=== PATIENT | female | born 1990 | race Caucasian/White ===

== ENCOUNTER → 2017-01-17 | Emergency (ER) | payer OTHER ==
[~2017-01-17] MED LIST: BCPILLS PO; BUPR8SUB19 SL; IBUP-1050 PO; LEVO75TA5 PO; ONDA4TAB46 PO
== END ==
LOC: C.EDB 18:52
DX: Z00.8 Encounter for other general examination (principal)

== ENCOUNTER → 2017-01-17 | Outpatient (CLI) | payer OTHER | END | disposition home or self-care (01) | LOC: C.LAB 19:04 | DX: Z02.83 Encounter for blood-alcohol and blood-drug test (principal) ==

== ENCOUNTER 2017-11-23 15:51 | Inpatient (IN) | payer OTHER ==
[~2017-11-23] VITALS: Ht 158.8 cm; Wt 81.8 kg
[2017-11-23] MEDS ORDERED: LACTATED RINGER'S 1000ML 1,000 ML IV PRN (19:14)
[2017-11-23] MEDS ORDERED: BUPIVACAINE 0.25% 30 ML VIAL ONE (19:52)
[2017-11-23] MEDS ORDERED: EpHEDrine SULFATE INJ 50 MG/ML AMP ONE (19:53)
[2017-11-23] MEDS ORDERED: FENTANYL CITRATE INJ 50 MCG/1 ML 2 ML VIAL ONE (19:53)
[2017-11-23] MEDS ORDERED: FENTANYL 2MCG/ML ROPIV 1.25MG/ML 100ML BAG ONE (19:53)
[2017-11-23 21:08] LABS: HEMOGLOBIN 13.2 g/dL (12.0-16.0); MEAN CELL VOLUME 85.6 fL (80-100); MEAN CORPUSCULAR HEMOGLOBIN 29.7 pg (25-34); MEAN CORPUSCULAR HGB CONC 34.7 g/dl (32-36); MEAN PLATELET VOLUME 13.2 fL (7.4-10.4); PLATELET COUNT 158 K/uL (130-400); RED CELL DISTRIBUTION WIDTH CV 13.9 % (11.5-14.5); RED CELL DISTRIBUTION WIDTH SD 43.2 fL (36.4-46.3); WHITE BLOOD COUNT 17.55 K/uL (4.8-10.8)
[2017-11-23] MEDS: LACTATED RINGER'S 1000ML 1,000 ML IV SCH (21:24)
[2017-11-23 22:35] VITALS: Ht 158.8 cm; Wt 81.8 kg
[2017-11-24] MEDS: LACTATED RINGER'S 1000ML 1,000 ML IV SCH ×2 (00:44→08:25)
[2017-11-24] MEDS ORDERED: FENTANYL 2MCG/ML ROPIV 1.25MG/ML 100ML BAG ONE (05:07)
[2017-11-24] MEDS ORDERED: LACTATED RINGER'S 1000ML 500 ML IV PRN ×2 (05:21→07:36)
[2017-11-24] MEDS ORDERED: DiphenhydrAMINE HCL 50 MG/ML VIAL IV PRN (05:30)
[2017-11-24] MEDS ORDERED: ONDANSETRON INJ 2 MG/ML 2 ML VIAL IV PRN (05:30)
[2017-11-24] MEDS ORDERED: FENTANYL 2MCG/ML ROPIV 1.25MG/ML 100ML BAG EPI PRN (05:30)
[2017-11-24] MEDS ORDERED: EpHEDrine SULFATE INJ 50 MG/ML AMP IV PRN (05:30)
[2017-11-24] MEDS ORDERED: OXYTOCIN 30 UNITS/500ML NSS IV PRN ×2 (07:45→12:15)
[2017-11-24] MEDS: BUPRENORPHINE HCL 8 MG SUBL SL SCH (08:01)
[2017-11-24] MEDS: LEVOTHYROXINE 75 MCG TAB PO SCH (08:01)
[2017-11-24] MEDS ORDERED: ONDA-170 PO (08:16)
[2017-11-24] MEDS ORDERED: LANOLIN OINT EXT PRN (12:15)
[2017-11-24] MEDS ORDERED: DIPHTHERIA/TETANUS/PERTUSSIS 0.5 ML SYR/VIAL IM. ONE (12:15)
[2017-11-24] MEDS ORDERED: ACETAMINOPHEN 325 MG TAB PO PRN (12:15)
[2017-11-24] MEDS ORDERED: SUPERCREAM 0.870 % 15GM JAR EXT PRN (12:15)
[2017-11-24] MEDS ORDERED: BENZOCAINE 20% AER SPR 82.5 GM CAN EXT PRN (12:15)
[2017-11-24] MEDS ORDERED: HYDROCORTISONE ACETATE 25 MG SUPP PR PRN (12:15)
[2017-11-24] MEDS: IBUPROFEN 600 MG TAB PO PRN ×2 (13:03→19:52)
--- NOTE | 2017-11-24 13:31 | Anesthesia Procedure Note ---
Anesthesia Epidural Removal Nt Date & Time Nov 24, 2017 at 13:31 Vital Signs Pain Intensity: 3.0 Notes Mental Status: alert / awake / arousable, participated in evaluation Nausea / Vomiting: adequately controlled Pain: adequately controlled Airway Patency, RR, SpO2: stable & adequate BP & HR: stable & adequate Hydration State: stable & adequate Neuraxial Anesthesia: was administered, sensory block is resolving Anesthetic Complications: no major complications apparent, pt satisfied with anesthetic care Epidural: removed without complications, with tip intact
--- NOTE | 2017-11-24 14:16 | DELIVERY SUMMARY ---
DATE OF OPERATION: 11/24/2017 Agnieszka Garza was admitted in labor. She is on Subutex 24 mg a day for drug dependence. She is also on levothyroxine 75 mcg a day. She labored throughout the night. When I came on in the morning she was about 7+ cm. Her contractions were sporadic. Started her on IV oxytocin. She had an epidural in place for pain control. She went to full dilatation and delivered a live male via direct occiput anterior position over an intact perineum. The was suctioned through the mouth and the nose. Cord was clamped, cut by the father. Cord blood was taken. With IV Pitocin running, the placenta was removed intact. Inspection revealed a tear of the right labia minora that extended from the hymenal ring. The perineum was intact. We infiltrated the area with local. I then did a deep suture of 2-0 Vicryl to approximate the edges of the labia minora. Then I did a mattress suture to approximate it on either side of the midline approximation. With about 6-7 mattress sutures, I approximated the tissues anatomically. Hemostasis was good. I inspected the perineum, was intact, checked for any vaginal hematomas. There were none. ESTIMATED BLOOD LOSS: 200 mL. Apgars were deferred to the nurses. I attest to the content of the Intraoperative Record and any orders documented therein. Any exception s are noted below.
[2017-11-24 15:15] VITALS: BP 123/68; PULSE 83; TEMP 36.7
[2017-11-24] MEDS: DOCUSATE SODIUM 100 MG CAP PO SCH (19:33)
[2017-11-24 19:35] VITALS: BP 111/64; PULSE 84; TEMP 36.7; O2SAT 99
[2017-11-25 00:30] VITALS: BP 113/61; PULSE 64; TEMP 36.9; O2SAT 99
[2017-11-25] MEDS: IBUPROFEN 600 MG TAB PO PRN ×3 (03:47→19:39)
[2017-11-25 07:30] VITALS: BP 108/54; PULSE 60; TEMP 36.9; O2SAT 98
[2017-11-25] MEDS ORDERED: LEVOTHYROXINE 75 MCG TAB PO SCH (07:30)
[2017-11-25] MEDS: LEVOTHYROXINE 75 MCG TAB PO SCH (07:59)
[2017-11-25] MEDS ORDERED: BUPRENORPHINE HCL 8 MG SUBL SL SCH (08:00)
[2017-11-25 08:04] LABS: HEMATOCRIT 34.9 % (37-47); HEMOGLOBIN 11.9 g/dL (12.0-16.0)
--- NOTE | 2017-11-25 08:41 | Progress Note ---
Subjective Nov 25, 2017. Subjective conversation w/ patient Ambulation: ambulating normally Voiding: no voiding problems Passing Gas: Yes Diet Tolerance: Regular Diet Lochia: Small Feeding Type: Breast Feeding Review of Systems Constitutional: + fever Objective Vital Signs Date Time Temp Pulse Resp B/P (MAP) Pulse Ox O2 Delivery O2 Flow Rate FiO2 11/25/17 07:30 98 Room Air 11/25/17 07:30 36.9 60 18 108/54 (72) 98 Room Air 11/25/17 00:30 36.9 64 20 113/61 (78) 99 Room Air 11/25/17 00:30 99 Room Air 11/24/17 19:35 36.7 84 20 111/64 (80) 99 Room Air 11/24/17 19:35 99 Room Air 11/24/17 15:15 36.7 83 20 123/68 (86) Physical Exam General Appearance: WELL-APPEARING Abdomen: non tender Fundus: Firm, Non-Tender Extremities: no pedal edema, no calf tenderness Laboratory Results Last 24 Hours Test 11/25/17 07:47 Hemoglobin 11.9 g/dL Hematocrit 34.9 % Assessment and Plan Post- Day#: 1
[2017-11-25] MEDS: ONDANSETRON 8 MG TAB PO SCH (08:59)
[2017-11-25] MEDS: PRENATAL VITAMIN TAB PO SCH (09:00)
[2017-11-25] MEDS: DOCUSATE SODIUM 100 MG CAP PO SCH ×2 (09:00→19:38)
[2017-11-25] MEDS: FERROUS SULFATE 325 MG TAB PO SCH (09:00)
[2017-11-25] MEDS: BUPRENORPHINE HCL 8 MG SUBL SL SCH (09:03)
[2017-11-25 13:00] VITALS: BP 106/51; PULSE 68; TEMP 37; O2SAT 97
[2017-11-25 15:50] VITALS: BP 118/72; PULSE 60; TEMP 36.8; O2SAT 97
[2017-11-25 19:25] VITALS: BP 130/74; PULSE 85; TEMP 36.8
[2017-11-25] MEDS ORDERED: BISACODYL 5 MG TABEC PO SCH (20:00)
[2017-11-26 03:25] VITALS: BP 129/73; PULSE 61; TEMP 36.8
[2017-11-26] MEDS ORDERED: BISACODYL 10 MG SUPP PR PRN (07:00)
[2017-11-26 07:20] VITALS: BP 126/70; PULSE 65; TEMP 36.8; O2SAT 97
[2017-11-26] MEDS: ONDANSETRON 8 MG TAB PO SCH (07:33)
[2017-11-26] MEDS: LEVOTHYROXINE 75 MCG TAB PO SCH (07:33)
[2017-11-26] MEDS: DOCUSATE SODIUM 100 MG CAP PO SCH (07:33)
[2017-11-26] MEDS: PRENATAL VITAMIN TAB PO SCH (07:33)
[2017-11-26] MEDS: IBUPROFEN 600 MG TAB PO PRN (07:34)
[2017-11-26] MEDS: FERROUS SULFATE 325 MG TAB PO SCH (07:36)
[2017-11-26 07:57] LABS: BASO % 0.5 %; BASO ABS # 0.06 K/uL (0-0.2); EOS % 2.9 %; EOS ABS # 0.35 K/uL (0-0.5); HEMATOCRIT 36.1 % (37-47); HEMOGLOBIN 12.3 g/dL (12.0-16.0); IG# 0.05 K/uL (0.00-0.02); LYMPH % 25.3 %; LYMPH ABS # 3.03 K/uL (1.2-3.4); MEAN CELL VOLUME 87.8 fL (80-100); MEAN CORPUSCULAR HEMOGLOBIN 29.9 pg (25-34); MEAN CORPUSCULAR HGB CONC 34.1 g/dl (32-36); MEAN PLATELET VOLUME 12.3 fL (7.4-10.4); MONO % 8.8 %; MONO ABS # 1.05 K/uL (0.11-0.59); NEUT % 62.1 %; NEUT ABS # 7.45 K/uL (1.4-6.5); PLATELET COUNT 162 K/uL (130-400); RED CELL DISTRIBUTION WIDTH CV 14.2 % (11.5-14.5); RED CELL DISTRIBUTION WIDTH SD 45.6 fL (36.4-46.3); WHITE BLOOD COUNT 11.99 K/uL (4.8-10.8)
[2017-11-26] MEDS: BUPRENORPHINE HCL 8 MG SUBL SL SCH (08:21)
--- NOTE | 2017-11-26 08:23 | OB/GYN Progress Note ---
PRIOR AUTHORIZATION TECHNICIAN Progress Note Date of Service: Nov 26, 2017. Patient is seen and examined. She feels well, no complaints. Ambulating without dizziness Voiding without difficulty Tolerating regular diet with out N&V Bleeding is minimal No fever/ chills/ CP/ SOB/ N&V/ Leg pain Breast feeding without problems Discussed contraception with patient in details. Abstinence for 6 weeks, BCP, progestin only pills, Nexplanon, IUD's, Mirena and Paragard.She likes Rx for POP. Date Time Temp Pulse Resp B/P (MAP) Pulse Ox O2 Delivery O2 Flow Rate FiO2 11/26/17 03:25 36.8 61 18 129/73 (91) 11/25/17 19:25 Room Air 11/25/17 19:25 36.8 85 18 130/74 (92) 11/25/17 15:50 36.8 60 18 118/72 (87) 97 Room Air 11/25/17 13:00 37.0 68 18 106/51 (69) 97 Room Air Last 24 Hours Test 11/26/17 07:47 White Blood Count 11.99 K/uL Red Blood Count 4.11 M/uL Hemoglobin 12.3 g/dL Hematocrit 36.1 % Mean Corpuscular Volume 87.8 fL Mean Corpuscular Hemoglobin 29.9 pg Mean Corpuscular Hemoglobin Concent 34.1 g/dl Platelet Count 162 K/uL Mean Platelet Volume 12.3 fL Neutrophils (%) (Auto) 62.1 % Lymphocytes (%) (Auto) 25.3 % Monocytes (%) (Auto) 8.8 % Eosinophils (%) (Auto) 2.9 % Basophils (%) (Auto) 0.5 % Neutrophils # (Auto) 7.45 K/uL Lymphocytes # (Auto) 3.03 K/uL Monocytes # (Auto) 1.05 K/uL Eosinophils # (Auto) 0.35 K/uL Basophils # (Auto) 0.06 K/uL RDW Standard Deviation 45.6 fL RDW Coefficient of Variation 14.2 % Immature Granulocyte % (Auto) 0.4 % Immature Granulocyte # (Auto) 0.05 K/uL PE: General: Alert, orientedx3, NAD Abd: soft, NT, fundus firm, below Umbilicus Perineum intact, Lochia rubra minimal Ext; NT, no edema AP: 27 yo s/p , ppd# 2 VSS Afebrile doing well Continue routine care All questions were answered Instructions were given when to call D/C home , f/u in office
[2017-11-26] MEDS ORDERED: PRENTAB26 PO (08:24)
[2017-11-26] MEDS ORDERED: NORE0.3527 PO (08:24)
[2017-11-26] MEDS ORDERED: LEVO75TA5 PO (08:24)
[2017-11-26] MEDS ORDERED: MTR600X PO (08:24)
--- NOTE | 2017-11-26 08:25 | Discharge Instructions ---
Discharge Instructions Date of Service Nov 26, 2017. Admission Reason for Admission: Check Labor Discharge Discharge Diagnosis / Problem: Discharge Goals Goal(s): Routine recovery after delivery Medications Continue Dispensed Medications: lansinoh Activity Recommendations Activity Limitations: as noted below ACTIVITY RECOMMENDATIONS: * Gradual return to full activity over the next 2-3 weeks. * No lifting - nothing heavier than baby over the next 2-3 weeks. * Do not engage in vigorous exercise, sexual activity or sports until cleared by your physician. * Do not drive or operate any motorized equipment until cleared by your physician. * You may shower/bathe daily. BREAST CARE: If you are not breast feeding: * Wear a supportive bra 24 hours a day for one to two weeks. * Avoid stimulating your breasts and nipples as much as possible during the first few weeks after delivery. * When taking a shower, have the warm water hit your back, not breasts. * When your breasts feel full, apply ice packs. Usually three to four times a day helps ease the discomfort. * Take a mild pain medication (Tylenol/Motrin) when you are uncomfortable. If breast feeding: * Use breast milk to lubricate nipples. Lansinoh cream may be used for sore nipples. You do not need to remove cream prior to breast feeding. If using a different brand of cream, check the label for directions regarding removal of cream prior to nursing. * Wear a supportive bra. * If having problems with breasts or breast feeding, call a apprenticeship consultant or your health care provider. EPISIOTOMY CARE: After delivery, if you have an episiotomy (stitches), the following steps will ease discomfort and aid healing. * For the first 24 hours after delivery, place ice packs next to your episiotomy to help reduce swelling. * After the first 24 hour-period, sitz baths, either portable or in the tub, are suggested. A shower with a shower arm sprayed over the episiotomy may be comforting. * Leonarda care should be done after each voiding and bowel movement. Squirt warm water from a plastic bottle over the perineum (region of the body between the anus and urinary opening) and pat dry. * Use Dermoplast to ease discomfort. Shake container. Novi directly over the episiotomy. * Place a Tucks on a clean sanitary pad next to your episiotomy. OVER THE COUNTER MEDICATION: * For discomfort or pain, you may use Acetaminophen (Tylenol), Ibuprofen (Advil ), or Naproxen (Aleve) following the package directions. * For constipation you may use Colace following the package directions. SPECIAL CARE INSTRUCTIONS: When you are discharged from the hospital, it is important for you to follow the instructions listed below: * During the first week at home, you should be able to care for yourself and your baby. In addition, the usual light household activities are encouraged. * Limit your activities to the way you feel. Do not try to clean the house or move furniture. Be sensible. * If you actively engage in sports and have done so up until the time of your delivery, you may resume these activities as soon as you feel able. This may take up to one month or even longer. Use good judgment. * Continue to take your vitamins for at least six weeks after the of your baby. * Your diet need not be limited unless you were on a special diet before your delivery. Breast-feeding mothers need around 2500 calories per day and at least 64-80 ounces of fluid per day (8 to 10 glasses). * You should eat foods from the four major food groups. Crash diets or fad diets are to be avoided. Eating lean meats, fresh fruits and vegetables, low-fat dairy products, high fiber foods and a regular exercise program, will help you get back to your pre- weight without putting your health at risk. * Constipation is sometimes a problem after delivery. Take a mild laxative as needed. If breast feeding, Milk of Magnesia is acceptable to use. You may use a suppository or Fleets enema if no episiotomy. * A daily shower or tub bath is suggested. Be sure to thoroughly and gently dry the perineum. * A bloody vaginal discharge will usually continue until around four weeks post . A small amount of bleeding may continue for as long as six weeks. Vaginal discharge changes from the bright red bleeding after delivery to pink then brownish and finally yellowish-pink before becoming white and disappearing. * Bleeding may increase with activity. Your first period may come in 4-8 weeks. If you are breast feeding, your period may be delayed even longer. * Bunch (sex) can begin whenever both you and your partner feel comfortable and do not have any form of genital infection. It is recommended that you wait until after your return appointment and discuss with your physician. If you have questions, please talk to your health care practitioner. A condom should be used to prevent infection and . * Foreplay, gentle intercourse and lubrication is very important the first several times to prevent pain. A water-based lubricant such as K-Y jelly or Astroglide may be used. * Tampons may be used six weeks after delivery. * Douching should be avoided for 6 weeks after delivery. * If you have RH negative blood and your baby is RH positive, you will receive RHOGAM by injection prior to discharge. The nurse will give you a card to keep with you that has the date and place that you received RHOGAM after delivery. * During your care, you had a Rubella screen done to check for the presence of rubella antibodies in your blood. If your test was negative, you will receive a Rubella vaccine prior to discharge. This vaccine may cause a fever, soreness at the injection site and flu-like symptoms. If these symptoms persist, notify your health care practitioner. is not advised for three months after a Rubella vaccine. There is a higher chance of having a baby with defects if conceived within three months of getting the vaccine. * If you were discharged 24 hours from delivery or before 48 hours: Visiting nurses will come to your home 48 hours after discharge to assess you and your baby. The visiting nurse will meet with you while you are in the hospital to arrange a time and get directions to your home. * Verbalizes understanding of car seat law as reviewed with patient nursing. * Car Seat hand-out given and reviewed with patient by nursing. * Shaken baby information reviewed with patient by nursing. Call you doctor if: * Heavy bleeding (saturating several pads an hour) or passing clots the size of your fist. * A fever >101 degrees F (38.3 degrees C) on two occasions four hours apart and/or chills. * Unusual pain in the pelvic or vaginal areas. * "Baby Blues" lasting longer than two weeks. If you have any questions or concerns, call your health care practitioner at . FOLLOW-UP VISIT: * Please call the office at to schedule a 6 week examination. It is important you keep this appointment. * It is important for you to make arrangements for either yearly or twice yearly check-ups thereafter. . Current Hospital Diet Patient's current hospital diet: Regular Diet Discharge Diet Recommended Diet: Regular Diet Pending Studies Studies pending at discharge: no Medical Emergencies . Who to Call and When: Medical Emergencies: If at any time you feel your situation is an emergency, please call 911 immediately. . Non-Emergent Contact Non-Emergency issues call your: [employer] Accounts Recruiter, Surgeon Call Non-Emergent contact if: temperature is above 100.5, your pain is not controlled, your pain is worsening, your pain is unusual for you, you have any medication questions . . "Provider Documentation" section prepared by Toyin Ramirez. .
[2017-11-26 16:15] VITALS: BP 123/70; PULSE 69; TEMP 36.6; O2SAT 97
[2017-11-26 16:30] VITALS: BP_DIAS 70; PULSE 69; TEMP 36.6
== END 2017-11-26 16:30 | disposition home or self-care (01) | DRG 775 ==
LOC: C.OPB 15:51 → C.LD 15:52 → C.OPB 19:18 → C.OBG 11-24 15:15
PROVIDERS: ADMIT Obstetrics & Gynecology; ATTEND Obstetrics & Gynecology
PROC: 0HQ9XZZ Repair Perineum Skin, External Approach (ICD-10-PCS; principal; 2017-11-24)
PROC: 10E0XZZ Delivery of Products of Conception, External Approach (ICD-10-PCS; principal; 2017-11-24)
DX: O70.0 First degree perineal laceration during delivery (principal); O99.324 Drug use complicating childbirth; F11.20 Opioid dependence, uncomplicated; O99.334 Smoking (tobacco) complicating childbirth; F17.200 Nicotine dependence, unspecified, uncomplicated; O99.284 Endocrine, nutritional and metabolic diseases complicating childbirth; E03.9 Hypothyroidism, unspecified; Z3A.39 39 weeks gestation of pregnancy; Z37.0 Single live birth

== ENCOUNTER 2018-04-30 14:35 | Inpatient (IN) ==
[2018-04-30 18:09] LABS: Basophils # (auto) 0.04 K/uL (0-0.2); Basophils % (auto) 0.2 %; Eosinophils # (auto) 0.07 K/uL (0-0.5); Eosinophils % (auto) 0.4 %; Hemoglobin 12.4 g/dL (12.0-16.0); Immature Granulocytes # (auto) 0.07 K/uL (0.00-0.02); Immature Granulocytes % (auto) 0.4 %; Lymphocytes # (auto) 2.94 K/uL (1.2-3.4); Mean Corpuscular Hgb Conc 33.5 g/dL (32-36); Mean Corpuscular Volume 83.7 fL (80-100); Mean Platelet Volume 11.2 fL (7.4-10.4); Monocytes # (auto) 1.51 K/uL (0.11-0.59); Monocytes % (auto) 8.2 %; Neutrophils % (auto) 74.8 %; Platelet Count 326 K/uL (130-400); RDW Standard Deviation 46.2 fL (36.4-46.3); Red Blood Count 4.42 M/uL (4.2-5.4); White Blood Count 18.43 K/uL (4.8-10.8)
[2018-04-30 18:29] LABS: Albumin Level 3.1 gm/dl (3.4-5.0); BUN Creatinine Ratio 13.5 (10-20); Calcium 8.7 mg/dl (8.5-10.1); Creatinine Clr Calc Pharmacy 132.9 ml/min; Est GFR (African American) 145.8; Est GFR (Non-African American) 125.8; Potassium 3.3 mmol/L (3.5-5.1)
[2018-04-30 18:41] LABS: Albumin Globulin Ratio 0.7 (0.9-2); Bilirubin,Total 0.5 mg/dl (0.2-1); Globulin 4.3 gm/dl (2.5-4.0); Total Protein 7.4 gm/dl (6.4-8.2)
[2018-05-01 02:28] LABS: Pregnancy Test, Urine Negative (Negative)
[2018-05-01 10:47] LABS: Alanine Aminotransferase 15 U/L (12-78); Albumin Level 2.7 gm/dl (3.4-5.0); Aspartate Aminotransferase 9 U/L (15-37); BUN Creatinine Ratio 12.1 (10-20); Blood Urea Nitrogen 6 mg/dl (7-18); Calcium 8.3 mg/dl (8.5-10.1); Carbon Dioxide 25 mmol/L (21-32); Chloride 110 mmol/L (98-107); Creatinine Clr Calc Pharmacy 153.4 ml/min; Est GFR (African American) > 150.0; Est GFR (Non-African American) 131.9; Glucose 115 mg/dl (70-99); Potassium 4.2 mmol/L (3.5-5.1); Sodium 139 mmol/L (136-145)
[2018-05-01 10:53] LABS: Albumin Globulin Ratio 0.6 (0.9-2); Alkaline Phosphatase 135 U/L (45-117); Bilirubin,Total 0.2 mg/dl (0.2-1); Globulin 4.2 gm/dl (2.5-4.0); Total Protein 6.9 gm/dl (6.4-8.2)
[2018-05-01 14:45] LABS: Mean Corpuscular Hgb Conc 32.7 g/dL (32-36); Mean Platelet Volume 10.7 fL (7.4-10.4); Platelet Count 309 K/uL (130-400)
[2018-05-01 15:16] LABS: Basophils # (auto) 0.03 K/uL (0-0.2); Basophils % (auto) 0.2 %; Eosinophils # (auto) 0.11 K/uL (0-0.5); Eosinophils % (auto) 0.8 %; Hemoglobin 10.8 g/dL (12.0-16.0); Immature Granulocytes # (auto) 0.04 K/uL (0.00-0.02); Immature Granulocytes % (auto) 0.3 %; Lymphocytes # (auto) 2.43 K/uL (1.2-3.4); Lymphocytes % (auto) 18.2 %; Monocytes % (auto) 10.5 %; Neutrophils # (auto) 9.37 K/uL (1.4-6.5); RDW Standard Deviation 46.6 fL (36.4-46.3); Red Blood Count 3.93 M/uL (4.2-5.4); White Blood Count 13.38 K/uL (4.8-10.8)
[2018-05-02 08:18] LABS: Hematocrit (blood only) 31.4 % (37-47); Hemoglobin 10.2 g/dL (12.0-16.0); Mean Corpuscular Hgb Conc 32.5 g/dL (32-36); Mean Corpuscular Volume 84.6 fL (80-100); Mean Platelet Volume 10.3 fL (7.4-10.4); Platelet Count 289 K/uL (130-400); RDW Coefficient of Variation 15.1 % (11.5-14.5); RDW Standard Deviation 47.1 fL (36.4-46.3); Red Blood Count 3.71 M/uL (4.2-5.4); White Blood Count 10.37 K/uL (4.8-10.8)
[2018-05-02 09:13] LABS: BUN Creatinine Ratio 10.6 (10-20); Blood Urea Nitrogen 5 mg/dl (7-18); Calcium 8.3 mg/dl (8.5-10.1); Carbon Dioxide 24 mmol/L (21-32); Chloride 108 mmol/L (98-107); Creatinine Clr Calc Pharmacy 162.8 ml/min; Est GFR (African American) > 150.0; Est GFR (Non-African American) 134.5; Glucose 92 mg/dl (70-99); Magnesium 2.1 mg/dl (1.8-2.4); Potassium 3.6 mmol/L (3.5-5.1); Sodium 139 mmol/L (136-145)
[2018-05-03 09:03] LABS: Hematocrit (blood only) 29.9 % (37-47); Hemoglobin 9.8 g/dL (12.0-16.0); Mean Corpuscular Hgb Conc 32.8 g/dL (32-36); Mean Corpuscular Volume 84.7 fL (80-100); Mean Platelet Volume 9.7 fL (7.4-10.4); Platelet Count 308 K/uL (130-400); RDW Standard Deviation 46.8 fL (36.4-46.3); Red Blood Count 3.53 M/uL (4.2-5.4); White Blood Count 10.76 K/uL (4.8-10.8)
[2018-05-03 09:42] LABS: Blood Urea Nitrogen 3 mg/dl (7-18); Calcium 8.4 mg/dl (8.5-10.1); Carbon Dioxide 27 mmol/L (21-32); Chloride 104 mmol/L (98-107); Est GFR (African American) > 150.0; Est GFR (Non-African American) 129.5; Glucose 125 mg/dl (70-99); Magnesium 2.1 mg/dl (1.8-2.4); Potassium 3.2 mmol/L (3.5-5.1); Sodium 137 mmol/L (136-145)
[2018-05-04 09:17] LABS: BUN Creatinine Ratio 8.9 (10-20); Blood Urea Nitrogen 5 mg/dl (7-18); Calcium 8.4 mg/dl (8.5-10.1); Carbon Dioxide 26 mmol/L (21-32); Chloride 105 mmol/L (98-107); Creatinine Clr Calc Pharmacy 150.5 ml/min; Est GFR (African American) > 150.0; Glucose 88 mg/dl (70-99); Magnesium 2.2 mg/dl (1.8-2.4); Potassium 3.4 mmol/L (3.5-5.1); Sodium 137 mmol/L (136-145)
[2018-05-05 08:32] LABS: Albumin Level 2.3 gm/dl (3.4-5.0); BUN Creatinine Ratio 8.8 (10-20); Calcium 8.7 mg/dl (8.5-10.1); Creatinine Clr Calc Pharmacy 135.2 ml/min; Est GFR (African American) 146.6; Est GFR (Non-African American) 126.5; Potassium 3.5 mmol/L (3.5-5.1)
[2018-05-05 08:34] LABS: Albumin Globulin Ratio 0.5 (0.9-2); Bilirubin,Total 0.1 mg/dl (0.2-1); Globulin 4.5 gm/dl (2.5-4.0); Total Protein 6.8 gm/dl (6.4-8.2)
[2018-05-06 14:46] LABS: Basophils # (auto) 0.05 K/uL (0-0.2); Basophils % (auto) 0.6 %; Eosinophils # (auto) 0.26 K/uL (0-0.5); Eosinophils % (auto) 2.9 %; Hemoglobin 9.9 g/dL (12.0-16.0); Immature Granulocytes # (auto) 0.03 K/uL (0.00-0.02); Immature Granulocytes % (auto) 0.3 %; Lymphocytes # (auto) 2.07 K/uL (1.2-3.4); Lymphocytes % (auto) 23.2 %; Mean Corpuscular Hgb Conc 31.9 g/dL (32-36); Mean Corpuscular Volume 84.7 fL (80-100); Mean Platelet Volume 9.6 fL (7.4-10.4); Monocytes # (auto) 0.94 K/uL (0.11-0.59); Monocytes % (auto) 10.5 %; Neutrophils # (auto) 5.58 K/uL (1.4-6.5); Neutrophils % (auto) 62.5 %; Platelet Count 452 K/uL (130-400); RDW Coefficient of Variation 14.6 % (11.5-14.5); RDW Standard Deviation 45.4 fL (36.4-46.3); Red Blood Count 3.66 M/uL (4.2-5.4); White Blood Count 8.93 K/uL (4.8-10.8)
== END 2018-05-07 14:20 | disposition home or self-care (01) ==
LOC: ED 14:35 → 3N 19:59 → SUATTDRO 19:59 → 3N 21:10